=== PATIENT | female | born 1960 ===

== ENCOUNTER 2018-12-19 10:40 | Emergency (ER) | payer MEDICAID ==
[2018-12-19 10:43] VITALS: BMI 21.1
[2018-12-19] MEDS ORDERED: Iohexol 240 (50 ml) PO ONE (11:45)
[2018-12-19] MEDS ORDERED: Sodium Chloride 0.9% 1,000 ML IV STA (11:47)
--- NOTE | 2018-12-19 11:53 | ED PDOC ---
HPI: Abdomen Time Seen by Provider: 12/19/18 11:07 Chief Complaint (Nursing): Abdominal Pain Chief Complaint (Provider): Abdominal Pain History Per: Patient History/Exam Limitations: no limitations Onset/Duration Of Symptoms: Days Current Symptoms Are (Timing): Still Present Location Of Pain/Discomfort: Epigastric Associated Symptoms: denies: Nausea, Vomiting Additional Complaint(s): 58 year old female with a past medical history of diabetes, hypertension, and osteoporosis who is presenting to the ED for evaluation of worsening abdominal pain ongpoing for over 3 months. Patient states that she had a positive PPD test for which she was taking Rifampin for 4 months. She also states that she had blood work and cultures done which were all normal. She admoits that she has been having acid reflux and heartburn but denies any nausea, vomiting, or diarrhea. Patient reports a decrease in food intake due to pain and denies taking any medications for pain today. PMD: [facility]. [facility] Past Medical History Reviewed: Historical Data, Nursing Documentation, Vital Signs Vital Signs: Last Vital Signs Temp 98.1 F 12/19/18 10:44 Pulse 75 12/19/18 10:44 Resp 16 12/19/18 10:44 BP 122/79 12/19/18 10:44 Pulse Ox 98 12/19/18 10:44 - Medical History PMH: Diabetes (NIDDM), Gastritis, HTN, Osteoporosis Denies: HIV, Chronic Kidney Disease - Surgical History Surgical History: No Surg Hx - Family History Family History: States: Unknown Family Hx - Social History Current smoker - smoking cessation education provided: No Alcohol: None Drugs: Denies - Immunization History Hx Tetanus Toxoid Vaccination: No Hx Influenza Vaccination: No Hx Pneumococcal Vaccination: No - Home Medications Home Medications: Ambulatory Orders Medication Instructions Recorded MetFORMIN [glucoPHAGE] 1 tab PO DAILY 07/26/16 Aspirin [Ecotrin] 1 tab PO DAILY PRN 09/20/16 Alendronate Sodium 70 mg PO QWK 11/17/16 Levocetirizine Dihydrochloride 5 mg PO DAILY 11/17/16 Omeprazole 40 mg PO DAILY 11/17/16 Ciprofloxacin HCl [Cipro] 500 mg PO BID 7 Days tab 12/19/18 Famotidine [Pepcid] 20 mg PO DAILY PRN #6 tab 12/19/18 Metronidazole [Flagyl] 500 mg PO TID 7 Days tablet 12/19/18 - Allergies Allergies/Adverse Reactions: Allergies Allergy/AdvReac Type Severity Reaction Status Date / Time No Known Allergies Allergy Verified 12/19/18 11:22 Review of Systems ROS Statement: Except As Marked, All Systems Reviewed And Found Negative Cardiovascular: Positive for: Other (burning in chest, heartburn ) Gastrointestinal: Positive for: Abdominal Pain. Negative for: Vomiting, Diarrhea Physical Exam - Reviewed Nursing Documentation Reviewed: Yes Vital Signs Reviewed: Yes - Physical Exam Appears: Positive for: Non-toxic, No Acute Distress Head Exam: Positive for: ATRAUMATIC, NORMAL INSPECTION, NORMOCEPHALIC Skin: Positive for: Normal Color, Warm, DRY Eye Exam: Positive for: EOMI, Normal appearance, PERRL Cardiovascular/Chest: Positive for: Regular Rate, Rhythm. Negative for: Murmur Respiratory: Positive for: Normal Breath Sounds. Negative for: Respiratory Di stress Gastrointestinal/Abdominal: Positive for: Soft, Tenderness (mild epigastric tenderness ). Negative for: Distended, Guarding, Rebound Back: Positive for: Normal Inspection. Negative for: L CVA Tenderness, R CVA Tenderness Extremity: Positive for: Normal ROM. Negative for: Deformity, Swelling Neurological/Psych: Positive for: Awake, Alert, Normal Tone, Oriented. Negative for: Motor/Sensory Deficits - Laboratory Results Result Diagrams: 12/19/18 12:21 12/19/18 12:21 - ECG O2 Sat by Pulse Oximetry: 98 (RA) Pulse Ox Interpretation: Normal Medical Decision Making Medical Decision Making: Time: 11:46 Impression: Abdominal Pain, Acic reflux Differentials: gastritis, GERD, gallbladder disease, liver disease, less likely SBO, colon cancer --r/o ACS Plan: --CT Abd/Pelvis --EKG --CMP --Lipase --Troponin --ED Urine Dipstick --CBC --IV Fluids --Omnipaque 50 ml PO --Urinalysis Scribe Attestation: Documented by Yamini Esteves, acting as a scribe for Nataly Price MD. Provider Scribe Attestation: All medical record entries made by the Scribe were at my direction and personally dictated by me. I have reviewed the chart and agree that the record accurately reflects my personal performance of the history, physical exam, medical decision making, and the department course for this patient. I have also personally directed, reviewed, and agree with the discharge instructions and disposition. Disposition - Clinical Impression Clinical Impression: Colitis, Gastritis - Patient ED Disposition Is Patient to be Admitted: Transfer of Care Counseled Patient/Family Regarding: Studies Performed, Diagnosis - Disposition Referrals: [facility] [Outside] - 12/22/18 Jerel Woodward MD, PhD [Staff Provider] - 12/22/18 Disposition: Transfer of Care Disposition Time: 15:00 Condition: STABLE Additional Instructions: Return if not better in 3 days. Prescriptions: Ciprofloxacin HCl [Cipro] 500 mg PO BID 7 Days tab Famotidine [Pepcid] 20 mg PO DAILY PRN #6 tab PRN Reason: Pain Metronidazole [Flagyl] 500 mg PO TID 7 Days tablet Instructions: Gastritis, Colitis (DC) Forms: [employer] (Armenian) Print Language: CHADIAN Patient Signed Over To: Raphael Mcginnis
[2018-12-19] MEDS ORDERED: Iohexol 240 (50 ml) ONE (11:55)
[2018-12-19] MEDS ORDERED: Alum-Mag Hydrox-Simethicone Susp (30 mL) PO ONE (11:55)
[2018-12-19] MEDS ORDERED: Alum-Mag Hydrox-Simethicone Susp (30 mL) ONE (12:07)
[2018-12-19 12:24] LABS: BASO # 0.1 K/uL (0.0-0.2); BASO % 0.9 % (0.0-2.0); EOS # 0.1 K/uL (0.0-0.7); EOS % 1.3 % (0.0-4.0); HEMOGLOBIN 12.9 g/dL (12.0-16.0); LYMPH # 2.7 K/uL (1.0-4.3); LYMPH % 48.7 % (20.0-40.0); MEAN CELL VOLUME 90.3 fl (81.0-99.0); MEAN CORPUSCULAR HEMOGLOBIN 30.4 pg (27.0-31.0); MEAN CORPUSCULAR HGB CONC 33.7 g/dL (33.0-37.0); MEAN PLATELET VOLUME 9.2 fl (7.2-11.7); MONO # 0.5 K/uL (0.0-0.8); MONO % 9.5 % (0.0-10.0); NEUT # 2.2 K/uL (1.8-7.0); NEUT % 39.6 % (50.0-75.0); NRBC % 0.1 % (0.0-0.0); RBC 4.22 Mil/uL (3.80-5.20); RED CELL DISTRIBUTION WIDTH 13.6 % (11.5-14.5); WHITE BLOOD COUNT 5.6 K/uL (4.8-10.8)
[2018-12-19 12:36] LABS: SQUAMOUS EPITHIAL < 1 /hpf (0-5); URINE BACTERIA RARE (<OCC); URINE BILIRUBIN NEGATIVE (NEGATIVE); URINE BLOOD NEGATIVE (NEGATIVE); URINE CLARITY CLEAR (Clear); URINE COLOR YELLOW (YELLOW); URINE GLUCOSE (UA) NEG (NEGATIVE); URINE LEUKOCYTE ESTERASE TRACE Leu/uL (Negative); URINE PROTEIN NEGATIVE (NEGATIVE); URINE UROBILINOGEN 0.2-1.0 mg/dL (0.2-1.0)
[2018-12-19 12:40] LABS: ALB/GLOB RATIO 1.3 (1.0-2.1); ALBUMIN 4.5 g/dL (3.5-5.0); ALT/SGPT 36 U/L (9-52); AST/SGOT 39 U/L (14-36); BLOOD UREA NITROGEN 18 mg/dl (7-17); CALCIUM 9.3 mg/dL (8.4-10.2); GFR NON-AFRICAN AMERICAN > 60; LIPASE 160 U/L (23-300)
[2018-12-19] MEDS ORDERED: Iohexol 300 100 ML IJ ONE (14:22)
[2018-12-19] MEDS ORDERED: Sodium Chloride 0.9% 50 ML IV ONE (14:23)
--- NOTE | 2018-12-19 15:07 | CT ---
Date of service: 12/19/2018 PROCEDURE: CT Abdomen and Pelvis with contrast HISTORY: epigastric pain COMPARISON: None. TECHNIQUE: Following oral and intravenous contrast administration, a CT examination of the abdomen and pelvis was performed from the domes of the diaphragms to the symphysis pubis with reformatted datasets provided not only axial but also sagittal and coronal series. Contrast dose: Omnipaque 300, 95 cc Radiation dose: Total exam DLP = 196.89 mGy-cm. This CT exam was performed using one or more of the following dose reduction techniques: Automated exposure control, adjustment of the mA and/or kV according to patient size, and/or use of iterative reconstruction technique. FINDINGS: LOWER THORAX: Tiny hiatal hernia identified. LIVER: Unremarkable. No gross lesion or ductal dilatation. GALLBLADDER AND BILE DUCTS: Unremarkable. PANCREAS: Unremarkable. No gross lesion or ductal dilatation. SPLEEN: Unremarkable. ADRENALS: Unremarkable. No mass. KIDNEYS AND URETERS: Unremarkable. No hydronephrosis. No solid mass. VASCULATURE: Unremarkable. No aortic aneurysm. No aortic atherosclerotic calcification or mural plaque present. BOWEL: The distal stomach is collapsed and mural thickening of the antrum is not excluded and therefore gastritis is difficult to completely exclude. Subtle thickening of the mid to distal descending and sigmoid colon segments is suspected though lack of adequate distention may simulate true thickening. Consider potential limited segmental colitis. No diverticular changes encountered. No obstruction. No gross mural thickening. APPENDIX: Normal appendix. PERITONEUM: Unremarkable. No free fluid. No free air. LYMPH NODES: Unremarkable. No enlarged lymph nodes. BLADDER: Unremarkable. REPRODUCTIVE: Unremarkable. BONES: No acute fracture. OTHER FINDINGS: None. IMPRESSION: Potential antral thickening gastritis however the antrum is collapsed and not well evaluated overall. Borderline mid to distal descending and sigmoid segmental colitis. Distended but otherwise unremarkable appearing gallbladder. No cholelithiasis, mural thickening or pericholecystic fluid collection evident. Clinically correlate nevertheless for potential cholecystitis.
--- NOTE | 2018-12-19 15:15 | ED PDOC ---
- Laboratory Results Result Diagrams: 12/19/18 12:21 12/19/18 12:21 Lab Results: Troponin I < 0.0120 ng/mL (0.00-0.120) 12/19/18 12:21 Total Bilirubin 0.6 mg/dl (0.2-1.3) 12/19/18 12:21 AST 39 U/L (14-36) H 12/19/18 12:21 ALT 36 U/L (9-52) 12/19/18 12:21 Alkaline Phosphatase 93 U/L (38-126) 12/19/18 12:21 Total Protein 8.0 G/DL (6.3-8.2) 12/19/18 12:21 Albumin 4.5 g/dL (3.5-5.0) 12/19/18 12:21 Globulin 3.5 gm/dL (2.2-3.9) 12/19/18 12:21 Albumin/Globulin Ratio 1.3 (1.0-2.1) 12/19/18 12:21 Lipase 160 U/L (23-300) 12/19/18 12:21 Urine Color Yellow (YELLOW) 12/19/18 12:23 Urine Clarity Clear (Clear) 12/19/18 12:23 Urine pH 6.0 (5.0-8.0) 12/19/18 12:23 Ur Specific [place] 1.018 (1.003-1.030) 12/19/18 12:23 Urine Protein Negative mg/dL (NEGATIVE) 12/19/18 12:23 Urine Glucose (UA) Neg mg/dL (NEGATIVE) 12/19/18 12:23 Urine Ketones Negative mg/dL (NEGATIVE) 12/19/18 12:23 Urine Blood Negative (NEGATIVE) 12/19/18 12:23 Urine Nitrate Negative (NEGATIVE) 12/19/18 12:23 Urine Bilirubin Negative (NEGATIVE) 12/19/18 12:23 Urine Urobilinogen 0.2-1.0 mg/dL (0.2-1.0) 12/19/18 12:23 Ur Leukocyte Esterase Trace Myah/uL (Negative) 12/19/18 12:23 Urine RBC (Auto) 3 /hpf (0-3) 12/19/18 12:23 Urine Microscopic WBC 5 /hpf (0-5) 12/19/18 12:23 Ur Squamous Epith Cells < 1 /hpf (0-5) 12/19/18 12:23 Urine Bacteria Rare (<OCC) 12/19/18 12:23 Interpretation Of Abn Labs: ast 39 - ECG ECG: Positive for: Interpreted By Me, Viewed By Me ECG Rhythm: Positive for: Normal QRS, Normal ST Segment, Sinus Rhythm O2 Sat by Pulse Oximetry: 98 (RA) Pulse Ox Interpretation: Normal - CT Scan/US ct Other Rad Studies (CT/US): Read By Radiologist Other Rad Interpretation: colitis, gastitis, distended gall bladder US Other Rad Studies (CT/US): Radiology Report Reviewed Other Rad Interpretation: no acute - Progress ED Course And Treament: 1934: Stable. AAOx3. Fu with pcp. US with no findings. Medical Decision Making Medical Decision Making: Time: 1500 --58 year old female with epigastric abdominal pain for 3 months signed out to this provider by Dr. Price, pending CT results. Patient is stable and pain free at this time. Time: 1503 CT abdomen and Pelvis FINDINGS: LOWER THORAX: Tiny hiatal hernia identified. LIVER: Unremarkable. No gross lesion or ductal dilatation. GALLBLADDER AND BILE DUCTS: Unremarkable. PANCREAS: Unremarkable. No gross lesion or ductal dilatation. SPLEEN: Unremarkable. ADRENALS: Unremarkable. No mass. KIDNEYS AND URETERS: Unremarkable. No hydronephrosis. No solid mass. VASCULATURE: Unremarkable. No aortic aneurysm. No aortic atherosclerotic calcification or mural plaque present. BOWEL: The distal stomach is collapsed and mural thickening of the antrum is not excluded and therefore gastritis is difficult to completely exclude. Subtle thickening of the mid to distal descending and sigmoid colon segments is suspected though lack of adequate distention may simulate true thickening. Consider potential limited segmental colitis. No diverticular changes encountered. No obstruction. No gross mural thickening. APPENDIX: Normal appendix. PERITONEUM: Unremarkable. No free fluid. No free air. LYMPH NODES: Unremarkable. No enlarged lymph nodes. BLADDER: Unremarkable. REPRODUCTIVE: Unremarkable. BONES: No acute fracture. OTHER FINDINGS: None. IMPRESSION: Potential antral thickening gastritis however the antrum is collapsed and not well evaluated overall. Borderline mid to distal descending and sigmoid segmental colitis. Distended but otherwise unremarkable appearing gallbladder. No cholelithiasis, mural thickening or pericholecystic fluid collection evident. Clinically correlate nevertheless for potential cholecystitis. ScribeAttestation: Documented byErnestina Galvan, acting as a scribe for Raphael Mcginnis MD. Provider ScribeAttestation: All medical record entries made by the Scribe were at my direction and personally dictated by me. I have reviewed the chart and agree that the record accurately reflects my personal performance of the history, physical exam, medical decision making, and the department course for this patient. I have also personally directed, reviewed, and agree with the discharge instructions and disposition. Disposition Counseled Patient/Family Regarding: Studies Performed, Diagnosis - Clinical Impression Clinical Impression: Colitis, Gastritis - POA Present On Arrival: None - Disposition Referrals: [facility] [Outside] - 12/22/18 Jerel Woodward MD, PhD [Staff Provider] - 12/22/18 Disposition: Routine/Home Disposition Time: 18:00 Condition: STABLE Additional Instructions: Return if not better in 3 days. Prescriptions: Ciprofloxacin HCl [Cipro] 500 mg PO BID 7 Days tab Famotidine [Pepcid] 20 mg PO DAILY PRN #6 tab PRN Reason: Pain Metronidazole [Flagyl] 500 mg PO TID 7 Days tablet Instructions: Gastritis, Colitis (DC) Forms: [employer] (Chinese) Print Language: OCCITAN
[2018-12-19 16:54] VITALS: RESP 18
--- NOTE | 2018-12-19 18:10 | CP.PCM.CON ---
History of Present Illness - History of Present Illness History of Present Illness: SURGERY NOTE FOR DR. IBARRA Reason: distended GB on CT scan 58F presents with abdominal pain in the epigastric region that started 4 months ago. Pain has been intermittent and patient states it got worse 2 days ago. She denies any nausea , vomiting, she denies any intolerance to diet. Patient is currently on medication Rifampin for the last 4 months for latent Tuberculosis. She also had a hx of EGD and was diagnosed with H.Pylori gastritis which she was treated for 2 year ago. She has had follow up negative endoscopy after. She states pain is much better since being in the ED. PMH: H.pylori PSH: Ovarian FILEMON, No removal of ovaries, Endoscopy Allergies: NKDA Past Patient History - Infectious Disease Hx of Infectious Diseases: None - Tetanus Immunizations Tetanus Immunization: Unknown - Past Medical History & Family History Past Medical History?: Yes - Past Social History Smoking Status: Never Smoked - CARDIAC Hx Hypertension: Yes - PULMONARY Hx Respiratory Disorders: No - NEUROLOGICAL Hx Neurological Disorder: No - HEENT Hx HEENT Problems: No - RENAL Hx Chronic Kidney Disease: No - ENDOCRINE/METABOLIC Hx Endocrine Disorders: Yes Hx Diabetes Mellitus Type 2: Yes - HEMATOLOGICAL/ONCOLOGICAL Hx Human Immunodeficiency Virus (HIV): No - INTEGUMENTARY Hx Dermatological Problems: No - MUSCULOSKELETAL/RHEUMATOLOGICAL Hx Osteoporosis: Yes - GASTROINTESTINAL Hx Gastritis: Yes - GENITOURINARY/GYNECOLOGICAL Hx Genitourinary Disorders: No - PSYCHIATRIC Hx Psychophysiologic Disorder: No Hx Substance Use: No - SURGICAL HISTORY Hx Surgeries: Yes Other/Comment: OVARIAN SX - ANESTHESIA Hx Anesthesia: Yes Hx Anesthesia Reactions: No Hx Malignant Hyperthermia: No Meds Allergies/Adverse Reactions: Allergies Allergy/AdvReac Type Severity Reaction Status Date / Time No Known Allergies Allergy Verified 12/19/18 11:22 Results - Vital Signs Recent Vital Signs: Last Vital Signs Temp 98.6 F 12/19/18 16:54 Pulse 71 12/19/18 16:54 Resp 18 12/19/18 16:54 BP 122/68 12/19/18 16:54 Pulse Ox 98 12/19/18 17:17 - Labs Result Diagrams: 12/19/18 12:21 12/19/18 12:21 Labs: Laboratory Results - last 24 hr 12/19/18 12/19/18 12/19/18 12:21 12:21 12:23 WBC 5.6 RBC 4.22 Hgb 12.9 Hct 38.1 MCV 90.3 MCH 30.4 MCHC 33.7 RDW 13.6 Plt Count 233 MPV 9.2 Neut % (Auto) 39.6 L Lymph % (Auto) 48.7 H [place] % (Auto) 9.5 Eos % (Auto) 1.3 Baso % (Auto) 0.9 Neut # (Auto) 2.2 Lymph # (Auto) 2.7 [place] # (Auto) 0.5 Eos # (Auto) 0.1 Baso # (Auto) 0.1 Sodium 139 Potassium 4.0 Chloride 102 Carbon Dioxide 29 Anion Gap 12 BUN 18 H Creatinine 0.6 L Est GFR ( Amer) > 60 Est GFR (Non-Af Amer) > 60 Random Glucose 99 Calcium 9.3 Total Bilirubin 0.6 AST 39 H ALT 36 Alkaline Phosphatase 93 Troponin I < 0.0120 Total Protein 8.0 Albumin 4.5 Globulin 3.5 Albumin/Globulin Ratio 1.3 Lipase 160 Urine Color Yellow Urine Clarity Clear Urine pH 6.0 Ur Specific [place] 1.018 Urine Protein Negative Urine Glucose (UA) Neg Urine Ketones Negative Urine Blood Negative Urine Nitrate Negative Urine Bilirubin Negative Urine Urobilinogen 0.2-1.0 Ur Leukocyte Esterase Trace Urine RBC (Auto) 3 Urine Microscopic WBC 5 Ur Squamous Epith Cells < 1 Urine Bacteria Rare
--- NOTE | 2018-12-19 18:18 | CP.PCM.CON ---
History of Present Illness - History of Present Illness History of Present Illness: SURGERY NOTE FOR DR. IBARRA Reason: CT findings of distended gallbladder 58F presents with abdominal pain that began 4 months ago. Patient states pain is intermittent and has gotten worse in the last two days. Patient states pain is i n the epigastric region. She denies nausea, vomiting. She denies pain with PO intake. She is able to tolerate diet. Patient is currently on medication for latent TB, rifampin. Patient was diagnosed with h.pyloric 2 years ago and was treated at the time. Patient had follow up EGD which were negative. She states the pain is much improved since being here. PMH: GERD, DM, Osteoporosis PSH: Endoscopy, FILEMON of "ovarian problems" Social: denies tobacco, alcohol and illicit drug use Allergies: NKDA Past Patient History - Infectious Disease Hx of Infectious Diseases: None - Tetanus Immunizations Tetanus Immunization: Unknown - Past Medical History & Family History Past Medical History?: Yes - Past Social History Smoking Status: Never Smoked - CARDIAC Hx Hypertension: Yes - PULMONARY Hx Respiratory Disorders: No - NEUROLOGICAL Hx Neurological Disorder: No - HEENT Hx HEENT Problems: No - RENAL Hx Chronic Kidney Disease: No - ENDOCRINE/METABOLIC Hx Endocrine Disorders: Yes Hx Diabetes Mellitus Type 2: Yes - HEMATOLOGICAL/ONCOLOGICAL Hx Human Immunodeficiency Virus (HIV): No - INTEGUMENTARY Hx Dermatological Problems: No - MUSCULOSKELETAL/RHEUMATOLOGICAL Hx Osteoporosis: Yes - GASTROINTESTINAL Hx Gastritis: Yes - GENITOURINARY/GYNECOLOGICAL Hx Genitourinary Disorders: No - PSYCHIATRIC Hx Psychophysiologic Disorder: No Hx Substance Use: No - SURGICAL HISTORY Hx Surgeries: Yes Other/Comment: OVARIAN SX - ANESTHESIA Hx Anesthesia: Yes Hx Anesthesia Reactions: No Hx Malignant Hyperthermia: No Meds Allergies/Adverse Reactions: Allergies Allergy/AdvReac Type Severity Reaction Status Date / Time No Known Allergies Allergy Verified 12/19/18 11:22 Physical Exam - Constitutional Appears: Non-toxic, No Acute Distress - Head Exam Head Exam: ATRAUMATIC - Eye Exam Eye Exam: EOMI, PERRL - ENT Exam ENT Exam: Mucous Membranes Moist - Respiratory Exam Respiratory Exam: Clear to Auscultation Bilateral, NORMAL BREATHING PATTERN - Cardiovascular Exam Cardiovascular Exam: REGULAR RHYTHM, +S1, +S2 - GI/Abdominal Exam GI & Abdominal Exam: Soft. absent: Distended, Firm, Guarding, Rebound, Rigid, Tenderness - Extremities Exam Extremities exam: Negative for: pedal edema, tenderness - Neurological Exam Neurological exam: Alert, Oriented x3 - Psychiatric Exam Psychiatric exam: Normal Affect, Normal Mood - Skin Skin Exam: Dry, Intact, Normal Color, Warm Results - Vital Signs Recent Vital Signs: Last Vital Signs Temp 98.6 F 12/19/18 16:54 Pulse 71 12/19/18 16:54 Resp 18 12/19/18 16:54 BP 122/68 12/19/18 16:54 Pulse Ox 98 12/19/18 17:17 - Labs Result Diagrams: 12/19/18 12:21 12/19/18 12:21 Labs: Laboratory Results - last 24 hr 12/19/18 12/19/18 12/19/18 12:21 12:21 12:23 WBC 5.6 RBC 4.22 Hgb 12.9 Hct 38.1 MCV 90.3 MCH 30.4 MCHC 33.7 RDW 13.6 Plt Count 233 MPV 9.2 Neut % (Auto) 39.6 L Lymph % (Auto) 48.7 H [place] % (Auto) 9.5 Eos % (Auto) 1.3 Baso % (Auto) 0.9 Neut # (Auto) 2.2 Lymph # (Auto) 2.7 [place] # (Auto) 0.5 Eos # (Auto) 0.1 Baso # (Auto) 0.1 Sodium 139 Potassium 4.0 Chloride 102 Carbon Dioxide 29 Anion Gap 12 BUN 18 H Creatinine 0.6 L Est GFR ( Amer) > 60 Est GFR (Non-Af Amer) > 60 Random Glucose 99 Calcium 9.3 Total Bilirubin 0.6 AST 39 H ALT 36 Alkaline Phosphatase 93 Troponin I < 0.0120 Total Protein 8.0 Albumin 4.5 Globulin 3.5 Albumin/Globulin Ratio 1.3 Lipase 160 Urine Color Yellow Urine Clarity Clear Urine pH 6.0 Ur Specific [place] 1.018 Urine Protein Negative Urine Glucose (UA) Neg Urine Ketones Negative Urine Blood Negative Urine Nitrate Negative Urine Bilirubin Negative Urine Urobilinogen 0.2-1.0 Ur Leukocyte Esterase Trace Urine RBC (Auto) 3 Urine Microscopic WBC 5 Ur Squamous Epith Cells < 1 Urine Bacteria Rare Assessment & Plan - Assessment and Plan (Free Text) Assessment: 58F with abdominal pain 2/2 gastritis, resolved Plan: - CT findings of distended gallbladder, no cholelithiasis - Patient will require Ultrasound for further evaluation of gallbladder Discussed with Dr. Michael Esquivel, PGY3
[2018-12-19 20:24] VITALS: BP 126/70; PULSE 76; TEMP 98.8
[2018-12-20 10:28] VITALS: O2SAT 98
--- NOTE | 2018-12-20 15:17 | CARD ---
APPROVED REPORT Date of service: 12/19/2018 EKG Measurement Heart [id number] <Conclusion> Normal sinus rhythm Normal ECG
--- NOTE | 2018-12-20 17:45 | US ---
Date of service: 12/19/2018 HISTORY: RUQ pain COMPARISON: None. TECHNIQUE: Sonographic evaluation of the right upper quadrant of the abdomen. FINDINGS: LIVER: Measures 11.4 cm in length. Normal echogenicity of the liver parenchyma. No mass. No intrahepatic bile duct dilatation. GALLBLADDER: Unremarkable. No gallstones. COMMON BILE DUCT: Measures 2.0 mm. No stones. No dilatation. PANCREAS: The tail of the pancreas is obscured by overlying bowel gas with remainder unremarkable. RIGHT KIDNEY: Measures 8.8 cm in length. Normal echogenicity. No calculus, mass, or hydronephrosis. AORTA: No aneurysmal dilatation. IVC: Unremarkable. OTHER FINDINGS: None . IMPRESSION: Unremarkable right upper quadrant ultrasound with exception of the tail the pancreas which is obscured by overlying gastrointestinal gas. Concordant preliminary report from Julia, 12/19/2018 7:41 p.m..
== END 2018-12-19 20:10 | disposition home or self-care (01) ==
LOC: H.ER 10:40
DX: K52.9 Noninfective gastroenteritis and colitis, unspecified (principal); K29.70 Gastritis, unspecified, without bleeding; K21.9 Gastro-esophageal reflux disease without esophagitis; I10 Essential (primary) hypertension; E11.9 Type 2 diabetes mellitus without complications; M81.0 Age-related osteoporosis without current pathological fracture; R76.11 Nonspecific reaction to tuberculin skin test without active tuberculosis; Z79.84 Long term (current) use of oral hypoglycemic drugs; Z79.82 Long term (current) use of aspirin
CPT/HCPCS: 74177; 76705; 80053; 81003; 83690; 84484; 85025; 93005; 96361; 96374; 99284; J7030; Q9966; Q9967